=== PATIENT | male | born 1945 | race Hispanic/Latino ===

== ENCOUNTER 2017-03-18 11:58 | Day surgery (SDC) | payer MEDICARE, OTHER ==
--- NOTE | 2017-03-18 13:32 | Anesthesia Day of Surgery ---
Anesthesia Day of Surgery - Day of Surgery Patient Examined: Yes Patient H&P Reviewed: Yes Patient is NPO: Yes
--- NOTE | 2017-03-18 13:32 | Anesthesia Consultation ---
Anesthesia Consult and Med Hx Date of service: 03/18/17 - Airway Anesthetic Teeth Evaluation: Good ROM Head & Neck: Adequate Mental/Hyoid Distance: Adequate Mallampati Class: Class II Intubation Access Assessment: Probably Good - Pulmonary Exam CTA: Yes - Cardiac Exam Cardiac Exam: RRR - Pre-Operative Health Status ASA Pre-Surgery Classification: ASA2 Proposed Anesthetic Plan: General - Pulmonary Hx Smoking: No Hx Sleep Apnea: No (KATIA PRE SCREEN HIGH RISK) - Cardiovascular System Hx Hypertension: Yes (x 10 yrs) Hx Heart Murmur: Yes - Central Nervous System Hx Psychiatric Problems: No - Other Systems Hx Cancer: Yes (CLL-HAD SPLEENECTOMY,CHEMO 1986,IVIG)
[2017-03-18] MEDS ORDERED: NACL 0.9% 1000 ML 1,000 ML IV SCH (14:00)
[2017-03-18] MEDS ORDERED: PEPCID PO NR (14:00)
[2017-03-18] MEDS ORDERED: VERSED IV NR (14:00)
[2017-03-18] MEDS ORDERED: NACL BACTERIOSTATIC INFILTRATI ONE (15:16)
--- NOTE | 2017-03-18 15:23 | Short Stay Summary ---
Short Stay Documentation Date of service: 03/18/17 - History H&P: obtained from office - Allergies and Medications Current Medications: Allergies hydrochlorothiazide Allergy (Verified 03/17/17 10:43) Shortness of Breath Penicillins Allergy (Verified 03/17/17 10:43) Hives Sulfa (Sulfonamide Antibiotics) Allergy (Verified 03/17/17 10:43) Shortness of Breath SOB AND HIVES Home Medications Medication Instructions Recorded Confirmed Last Taken Type Aspirin [Adult Low Dose Aspirin EC] 81 mg PO DAILY 03/09/17 03/17/17 Unknown History AtorvaSTATin [Lipitor] 80 mg PO QHS 03/09/17 03/17/17 Unknown History IMMUNE GLOBULIN,GAMMA(IgG) 10 gm IV QMONTH 03/09/17 03/17/17 Unknown History [Privigen 10%] amLODIPine [Norvasc] 10 mg PO DAILY 03/09/17 03/17/17 Unknown History Active Medications Famotidine (Pepcid) 20 mg PO PREOP NR Stop: 03/18/17 23:00 Sodium Chloride (Nacl 0.9% 1000 Ml) 1,000 mls @ 100 mls/hr IV DIRECT SYED Midazolam HCl (Versed) 2 mg IV PREOP NR Stop: 03/18/17 23:59 - Brief post op/procedure progress note Date of procedure: 03/18/17 Pre-op diagnosis: right renal stone 10mm, right distal uret 10mm stone Post-op diagnosis: same Procedure: right uret eswl, rt rpg, rt stent 6x28 Anesthesia: GETA Findings: good vis very good frag Surgeon: SABINA MONTELONGO Estimated blood loss: none Pathology: none Condition: stable - Hospital course Hospital course: orpacuhome - Disposition Condition at discharge: Good Disposition: DC-01 TO HOME OR SELFCARE Short Stay Discharge Plan Activity: advance as tolerated Diet: advance as tolerated Follow up with: ALEXEI PRETTY MD [Staff Physician] - 7 Days [facility] [Other] - 7 Days
--- NOTE | 2017-03-18 15:37 | Post Anesthesia Evaluation ---
- Post Anesthesia Evaluation Patient Participated: Yes Airway Patent: Yes Stable Respiratory Function: Yes Nausea/Vomiting: No Temp > 96.8F: Yes Pain Manageable: Yes Adequeate Hydration: Yes Anesthesia Complications: No Block Receding Appropriately: Not Applicable Patient on Ventilator: No
[2017-03-18] MEDS ORDERED: VANCOMYCIN/NS 1 GM/250 ML 1 GM/250 ML BAG IV NR (16:00)
[2017-03-18] MEDS ORDERED: DILAUDID ONE (16:19)
[2017-03-18] MEDS ORDERED: WATER FOR IRRIG STERILE IR ONE (16:30)
[2017-03-18] MEDS ORDERED: PERCOCET 5/325 PO PRN (17:40)
[2017-03-18] MEDS ORDERED: DILAUDID IV PRN (17:40)
[2017-03-18] MEDS ORDERED: ZOFRAN IV PRN (17:40)
[2017-03-18 19:23] VITALS: BP 138/70
--- NOTE | 2017-03-24 08:51 | Operative Report ---
PREOPERATIVE DIAGNOSES: 1. Right renal stone, 10 mm. 2. Right ureteral stone, 10 mm. PROCEDURE: Right ureteral ESWL, right RPG, right stent placement, 6 x 28 double J. ANESTHESIA: General. FINDINGS: Good visualization, very good fragmentation. SURGEON: Parviz Delgado MD ANESTHESIA: General. PATHOLOGY: None. CONDITION: Stable. CLINICAL INDICATIONS: The patient was counseled RCBA, antibiotics, SCDs. The patient was additionally counseled and the family before that the stent is temporary, must follow up for removal. DESCRIPTION OF PROCEDURE: The patient was transferred to OR suite in supine position and anesthesia begun, dorsal lithotomy position, prepped and draped in standard fashion. A 22-Divehi scope passed. Right retrograde performed, demonstrated filling defect at the site of the stone. Glidewire passed up to the renal pelvis with some contrast in the calices identified. A 6 x 28 double-J stent was passed over the wire under direct and fluoroscopic visualization. When the wire and instrument was removed, nice proximal and distal J. The stone did stay in position and was visible adjacent to the stent. At this point, the scope was withdrawn, placed in the supine position. Biplanar fluoroscopy was used to target the stone. There was very good visualization. A total of 3000 shocks were delivered, intermittent reposition done as necessary, 6 kilovolts maximum. At the end of the procedure, there was no significant visible stone at all, I suspect very good fragmentation. The patient was awakened and transferred to PACU in good and stable condition. PLAN: This is staged for future stent removal and future treatment of other separate stone. JOB# [id number] ATS/NTS
== END 2017-03-18 19:10 | disposition home or self-care (01) ==
LOC: OR 11:58
PROVIDERS: ATTEND Urology
DX: N20.2 Calculus of kidney with calculus of ureter (principal); I10 Essential (primary) hypertension; Z88.0 Allergy status to penicillin; Z88.2 Allergy status to sulfonamides; Z88.8 Allergy status to other drugs, medicaments and biological substances; Z79.82 Long term (current) use of aspirin; Z79.899 Other long term (current) drug therapy; Z85.6 Personal history of leukemia; Z90.81 Acquired absence of spleen
CPT/HCPCS: 50590; 52332; A4217; C1758; C1769; C2617; J1170; J2250; J3370; J7030; Q9967

== ENCOUNTER 2017-04-01 10:13 | Day surgery (SDC) | payer MEDICARE ==
[~2017-04-01 10:13] MED LIST: DECADRON ONE; DILAUDID ONE; DIPRIVAN 10 MG/ML IV ONE; XYLOCAINE MPF 2% ONE; ZOFRAN ONE
--- NOTE | 2017-04-01 11:04 | Anesthesia Consultation ---
Anesthesia Consult and Med Hx Date of service: 04/01/17 - Airway Anesthetic Teeth Evaluation: Good ROM Head & Neck: Adequate Mental/Hyoid Distance: Adequate Mallampati Class: Class II Intubation Access Assessment: Good - Pulmonary Exam CTA: Yes - Cardiac Exam Cardiac Exam: RRR - Pre-Operative Health Status ASA Pre-Surgery Classification: ASA3 Proposed Anesthetic Plan: General - Pulmonary Hx Smoking: No Hx Sleep Apnea: No (KATIA PRE SCREEN HIGH RISK) - Cardiovascular System Hx Hypertension: Yes (x 10 yrs) Hx Heart Murmur: Yes - Central Nervous System Hx Psychiatric Problems: No - Other Systems Hx Cancer: Yes (CLL-HAD SPLEENECTOMY,CHEMO 1986,IVIG)
[2017-04-01] MEDS ORDERED: LACTATED RINGERS 1,000 ML IV SCH (12:00)
[2017-04-01] MEDS ORDERED: VERSED IV NR (12:00)
[2017-04-01] MEDS ORDERED: FLAGYL 500 MG/100 ML 500 MG/100 ML BAG IV NR (13:00)
[2017-04-01] MEDS ORDERED: NACL 0.9% 1000 ML 1,000 ML ONE (14:18)
--- NOTE | 2017-04-01 14:25 | Short Stay Summary ---
Short Stay Documentation Date of service: 04/01/17 - History H&P: obtained from office - Allergies and Medications Current Medications: Allergies hydrochlorothiazide Allergy (Verified 03/17/17 10:43) Shortness of Breath immune globulin,gamma (IgG) human Allergy (Verified 04/01/17 11:33) Headache morphine Allergy (Verified 03/18/17 15:35) Vomiting PT ALSO REPORTS HALLUCINATIONS Penicillins Allergy (Verified 03/17/17 10:43) Hives Sulfa (Sulfonamide Antibiotics) Allergy (Verified 03/17/17 10:43) Shortness of Breath SOB AND HIVES Home Medications Medication Instructions Recorded Confirmed Last Taken Type Aspirin [Adult Low Dose Aspirin EC] 81 mg PO DAILY 03/09/17 04/01/17 1 Week Ago History AtorvaSTATin [Lipitor] 80 mg PO QHS 03/09/17 04/01/17 03/31/17 20:00 History IMMUNE GLOBULIN,GAMMA(IgG) 10 gm IV QMONTH 03/09/17 04/01/17 03/11/17 History [Privigen 10%] amLODIPine [Norvasc] 10 mg PO DAILY 03/09/17 04/01/17 03/31/17 06:00 History Ciprofloxacin HCl [Cipro] 250 mg PO BID #10 tablet 03/18/17 04/01/17 2 Weeks Ago Rx Cholecalciferol Vit D3 [Vitamin D3] 2,000 unit PO QDAY 03/30/17 04/01/17 20:00 History Furosemide [Lasix TAB] 40 mg PO QDAY 03/30/17 04/01/17 03/31/17 09:00 History Barnard-3 Fatty Acids/Fish Oil [Fish 1,000 mg PO DAILY 03/30/17 04/01/17 03/31/17 20:00 History Oil] Potassium Chloride [Klor-Con 10] 20 meq PO DAILY 03/30/17 04/01/17 03/31/17 20: 00 History Active Medications Lactated Ringer's (Lactated Ringers) 1,000 mls @ 100 mls/hr IV DIRECT SYED Last Admin: 04/01/17 11:56 Dose: 100 mls/hr Metronidazole (Flagyl 500 Mg/100 Ml) 500 mg in 100 mls @ 200 mls/hr IV PREOP NR Stop: 04/01/17 14:30 Midazolam HCl (Versed) 2 mg IV PREOP NR Stop: 04/01/17 23:59 Last Admin: 04/01/17 11:55 Dose: 2 mg - Brief post op/procedure progress note Date of procedure: 04/01/17 Pre-op diagnosis: rt renal stone, s/p stent Post-op diagnosis: same Procedure: rt eswl Anesthesia: GETA Surgeon: RHONDA KHANNA Estimated blood loss: none Pathology: none Condition: stable - Hospital course Hospital course: norco & post op info on chart - Disposition Condition at discharge: Stable Disposition: DC-01 TO HOME OR SELFCARE Short Stay Discharge Plan Follow up with: [facility] [Other] - 7 Days
--- NOTE | 2017-04-01 15:45 | Post Anesthesia Evaluation ---
- Post Anesthesia Evaluation Patient Participated: Yes Airway Patent: Yes Stable Respiratory Function: Yes Nausea/Vomiting: No Temp > 96.8F: Yes Pain Manageable: Yes Adequeate Hydration: Yes Anesthesia Complications: No
--- NOTE | 2017-04-01 15:54 | Operative Report ---
PREOPERATIVE DIAGNOSIS: Right renal stone, 1 cm, status post stent placement. POSTOPERATIVE DIAGNOSIS: Right renal stone 1 cm, status post stent placement. PROCEDURE: Right extracorporal shockwave lithotripsy, staged procedure. SURGEON: Sathish Garcia MD ANESTHESIA: General. ESTIMATED BLOOD LOSS: Minimal. FLUIDS: Crystalloid. COMPLICATIONS: No complications. INDICATIONS: This 71-year-old gentleman seen in the office by Dr. Jameson, underwent cystoscopy, stent, he presents now for lithotripsy. Risks, benefits, and complications were explained. DESCRIPTION OF PROCEDURE: The patient was taken to the operative suite, placed in a supine position. The stone was localized in two planes using fluoroscopy. Extracorporal shock wave lithotripsy was administered with a maximum kV of 5 and 2500 shocks. Adequate fragmentation could be appreciated. He tolerated the procedure well and was taken to recovery room in stable condition. He will go home on [place] and strain his urine. JOB# [id number] [facility]/JAMIE
[2017-04-01 16:20] VITALS: BP 139/62
== END 2017-04-01 16:41 | disposition home or self-care (01) ==
LOC: OR 10:13
PROVIDERS: ATTEND Urology
DX: N20.0 Calculus of kidney (principal); I10 Essential (primary) hypertension; Z88.8 Allergy status to other drugs, medicaments and biological substances; Z88.5 Allergy status to narcotic agent; Z88.0 Allergy status to penicillin; Z88.2 Allergy status to sulfonamides; Z79.82 Long term (current) use of aspirin; Z79.899 Other long term (current) drug therapy; Z85.6 Personal history of leukemia
CPT/HCPCS: 50590; J1100; J1170; J2250; J2405; J2704; J7030; J7120